=== PATIENT | female | born 1990 | race American Indian/Alaskan Native ===

== ENCOUNTER 2018-01-31 11:01 | Emergency (ER) | payer MEDICAID ==
--- NOTE | 2018-01-31 11:48 | Emergency Department Report ---
Upper Extremity - [facility] Chief Complaint: Extremity Injury, Upper Stated Complaint: LEFT SIDE RIB PAIN Time Seen by Provider: 01/31/18 11:10 ED Review of Systems ROS: Stated complaint: LEFT SIDE RIB PAIN Other details as noted in HPI ED Past Medical Hx - Past Medical History Previous Medical History?: No Hx Hypertension: No Hx CVA: No Hx Heart Attack/AMI: No Hx Congestive Heart Failure: No Hx Diabetes: No Hx Deep Vein Thrombosis: No Hx Pulmonary Embolism: No Hx GERD: No Hx Liver Disease: No Hx Renal Disease: No Hx Sickle Cell Disease: No Hx Arthritis: No Hx Headaches / Migraines: No Hx Seizures: No Hx Kidney Stones: No Hx Psychiatric Treatment: No Hx Asthma: No Hx COPD: No Hx Tuberculosis: No Hx Dementia: No Hx HIV: No - Surgical History Past Surgical History?: No Hx Coronary Stent: No Hx Open Heart Surgery: No Hx Pacemaker: No Hx Internal Defibrillator: No Hx Cholecystectomy: No Hx Appendectomy: No Hx Breast Surgery: No - Social History Smoking Status: Current Every Day Smoker Substance Use Type: None - Medications Home Medications: Home Medications Medication Instructions Recorded Confirmed Last Taken Type Fluconazole [Diflucan] 150 mg PO ONCE #1 tablet 03/22/15 Unknown Rx metroNIDAZOLE [Flagyl] 500 mg PO Q8H #21 tablet 03/22/15 Unknown Rx traMADol [Ultram 50 MG tab] 50 mg PO Q6HR PRN #12 tablet 03/22/15 Unknown Rx Amoxicillin [Trimox CAP] 500 mg PO Q8H #30 capsule 04/13/16 Unknown Rx Vit-Fe Fumar-FA [ 1 tab PO QDAY #90 tablet 04/13/16 Unknown Rx Vitamin] Upper Extremity Exam - Exam General: Vital signs noted. No distress. Alert and acting appropriately. ED Course Vital Signs 01/31/18 11:03 Temperature 98.6 F Pulse Rate 67 Blood Pressure 123/68 O2 Sat by Pulse 100 Oximetry Critical care attestation.: If time is entered above; I have spent that time in minutes in the direct care of this critically ill patient, excluding procedure time. ED Disposition Condition: Stable Referrals: ANGELITO PERDOMO [Other] - 3-5 Days
--- NOTE | 2018-01-31 12:07 | XRay Report ---
LEFT RIBS, 2 VIEWS: History: pain. Subtle deformity of the left posterior ninth rib is suspected. The remaining left ribs are within normal limits. The left lung is well-aerated. IMPRESSION: Probable left posterior ninth rib fracture.
--- NOTE | 2018-01-31 13:05 | Cat Scan Report ---
CT CHEST WITHOUT CONTRAST: HISTORY: chest pain. COMPARISON: none. TECHNIQUE: Helical CT in 1.25mm intervals without IV contrast. Sagittal and coronal reformatted images. FINDINGS: Thyroid gland: Normal. Tracheobronchial tree: Normal. Esophagus: Normal. Heart: Normal. Pericardium: Normal. Mediastinum: Normal. Lung Springer: Normal. Pleural Spaces: Normal. Musculoskeletal: CT confirms a mildly displaced left posterior ninth rib fracture. No additional fractures are appreciated. IMPRESSION: Left posterior ninth rib fracture.
[2018-01-31] MEDS ORDERED: TORADOL IM ONE (14:39)
--- NOTE | 2018-01-31 14:39 | Emergency Department Report ---
HPI - General Chief Complaint: Extremity Injury, Upper Time Seen by Provider: 01/31/18 11:10 - HPI HPI: This is 27-year-old female well-nourished well-developed here complaining and off falling 2 days ago over a curb on sidewalk. She says she fell and now she is having pain to her left flank area pointing to left rib cage. Denies any head injury, headache or neck pain. Denies any loss of consciousness. Her only complaint is pain to left sided rib cage. Pain is 7 out of 10 she reports is achy, worse with inspiration. [id number] pain medication did not help. Denies any medical problems. Denies any bruises or abrasion. Denies coughing up blood. ED Past Medical Hx - Past Medical History Previous Medical History?: No Hx Hypertension: No Hx CVA: No Hx Heart Attack/AMI: No Hx Congestive Heart Failure: No Hx Diabetes: No Hx Deep Vein Thrombosis: No Hx Pulmonary Embolism: No Hx GERD: No Hx Liver Disease: No Hx Renal Disease: No Hx Sickle Cell Disease: No Hx Arthritis: No Hx Headaches / Migraines: No Hx Seizures: No Hx Kidney Stones: No Hx Psychiatric Treatment: No Hx Asthma: No Hx COPD: No Hx Tuberculosis: No Hx Dementia: No Hx HIV: No - Surgical History Past Surgical History?: No Hx Coronary Stent: No Hx Open Heart Surgery: No Hx Pacemaker: No Hx Internal Defibrillator: No Hx Cholecystectomy: No Hx Appendectomy: No Hx Breast Surgery: No - Family History Family history: no significant - Social History Smoking Status: Current Every Day Smoker Substance Use Type: None - Medications Home Medications: Home Medications Medication Instructions Recorded Confirmed Last Taken Type Fluconazole [Diflucan] 150 mg PO ONCE #1 tablet 03/22/15 Unknown Rx metroNIDAZOLE [Flagyl] 500 mg PO Q8H #21 tablet 03/22/15 Unknown Rx traMADol [Ultram 50 MG tab] 50 mg PO Q6HR PRN #12 tablet 03/22/15 Unknown Rx Amoxicillin [Trimox CAP] 500 mg PO Q8H #30 capsule 04/13/16 Unknown Rx Vit-Fe Fumar-FA [ 1 tab PO QDAY #90 tablet 04/13/16 Unknown Rx Vitamin] Acetaminophen/Codeine [Tylenol 1 tab PO Q6H PRN #12 tab 01/31/18 Unknown Rx /Codeine # 3 tab] Ibuprofen [Motrin] 600 mg PO Q8H PRN #12 tablet 01/31/18 Unknown Rx ED Review of Systems ROS: Stated complaint: LEFT SIDE RIB PAIN Other details as noted in HPI Comment: All other systems reviewed and negative Constitutional: no symptoms reported Respiratory: no symptoms reported Cardiovascular: other (left rib cage pain ). denies: chest pain, palpitations, dyspnea on exertion, edema, syncope, paroxysmal nocturnal dyspnea Gastrointestinal: denies: abdominal pain, nausea, vomiting, diarrhea, constipation, hematemesis, melena, hematochezia Genitourinary: denies: dysuria, hematuria Musculoskeletal: arthralgia. denies: back pain, joint swelling Skin: denies: rash Neurological: denies: headache, numbness, paresthesias, abnormal gait, vertigo Physical Exam - Physical Exam Vital Signs: Vital Signs 01/31/18 11:03 Temperature 98.6 F Pulse Rate 67 Blood Pressure 123/68 O2 Sat by Pulse 100 Oximetry General: This is a 27-year-old female well-nourished well-developed in no acute distress and nontoxic in appearance. Physical Exam: Head: Normocephalic, atraumatic, no abrasion, no bruising and no contusion. Eyes: Biateral pupils equal and reactive to light, bilateral EOM intact.. Bilateral conjunctival and sclera without injection, normal accommodation. No nystagmus Mouth: Mucosa moist, no pharyngeal exudate or erythema. No peritonsillar abscesses. Uvula is midline and oral airways patent. Ears: Bilateral TMs pearly gama Bilateral EAC without any redness swelling or drainage. No mastoid bone tenderness Nose: Lateral nasal mucosa normal ,Maxillary and frontal sinuses non-tender to palpate. Neck: Supple, No Cervical adenopathy, full range of motion and no C-spine tenderness. No swelling or tracheal deviation normal reflexes Cardiovascular: S1, S2. Regular rate and rhythm. No murmur. Capillary refill is less then 3 seconds. Lungs: Clear to auscultate bilaterally. No rhonchi, wheezes or rales. Positive chest wall tenderness to left distal, medial and lateral chest wall at lower rib.. No chest contusion. No bruising to chest. No crepitus. No abrasions or laceration to chest. MSK: Strength 5/5 in all extremities. No joint deformity or crepitus. Normal inspection. Full range of motion to all extremities. No laceration, abrasion or ecchymotic area noted. Abdomen: Non-tender to palpate in all quadrants, no guarding or rebound tenderness, positive bowel sounds in all quadrants. No CVA tenderness. No hernia, bruit or mass. No rigidity or distention. Extremities: No clubbing, cyanosis or edema. +2 pulses. No neurovascular compromise Skin: Clean, dry and intact. No rash or lesions. Neurological: GCS at 15, Pt is alert and oriented 3 speech is clear . Bilateral hand data collection specialist strong and equal. Normal gait. Negative Romberg and no pronator drift. Normal Reflexes. No motor or sensory deficit Back: No vertebral tenderness, no paraspinal tenderness. Ambulates without any difficulties. Psych: Normal mood and behavior ED Course Vital Signs 01/31/18 11:03 Temperature 98.6 F Pulse Rate 67 Blood Pressure 123/68 O2 Sat by Pulse 100 Oximetry - Reevaluation(s) Reevaluation #1: 01/31/18 14:40 She given Toradol 60 mg IM in emergency room for Rib pain. ED Medical Decision Making - Radiology Data Radiology results: report reviewed X-ray of left reveals ninth rib fracture but no suggestion of displacement. X- ray films apparent of some displacement therefore CT scan of chest was ordered and shows mildly displaced left posterior ninth rib fracture. No additional fractures seen - Medical Decision Making ED course: Patient status post accidental fall who complains of left rib pain. She has no contusion, abrasion or laceration to the side. She has no other injuries. Patient had x-ray of left rib which shows ninth rib fracture without any suggestion of displacement. She had CT scan which shows mildly displaced ninth posterior rib fracture. Patient was given Toradol 60 mg IM in emergency room for pain and I discussed diagnosis with her. She does have access to primary care but she doesn't have a primary care physician therefore discussed the patient is to follow-up with primary care physician and if she doesn't have one to follow-up at [facility]. to call tomorrow to schedule an appointment for well female visit to include Pap smear and also she will need repeat x-ray in about one week for follow-up rib fracture with mild displacement. Patient voiced understanding of diagnosis and treatment plan and discharged home with prescription for Tylenol 3, Motrin and to follow-up Critical care attestation.: If time is entered above; I have spent that time in minutes in the direct care of this critically ill patient, excluding procedure time. ED Disposition Clinical Impression: Musculoskeletal pain Left rib fracture Qualifiers: Encounter type: initial encounter Rib fracture type: single rib Fracture type: closed Qualified Code(s): S22.32XA - Fracture of one rib, left side, initial encounter for closed fracture Accidental fall Qualifiers: Encounter type: initial encounter Qualified Code(s): W19.XXXA - Unspecified fall, initial encounter Disposition: TO HOME OR SELFCARE Is pt being admited?: No Does the pt Need Aspirin: No Condition: Stable Instructions: Rib Fracture (ED), Musculoskeletal Pain (ED) Additional Instructions: Please the present cough every 3-4 hours to prevent pneumonia and collapsed of lung bases. Please follow-up with primary care physician and if he do not have one follow- up at [facility] for primary care. Call tomorrow to schedule an appointment. You will need repeat x-ray for follow-up rib fracture. take motrin and ttylenol #[address] or operate heavy machinery while taking TYlenol # 3 as it causea drowsiness Prescriptions: Acetaminophen/Codeine [Tylenol /Codeine # 3 tab] 1 tab PO Q6H PRN #12 tab PRN Reason: severe pain Ibuprofen [Motrin] 600 mg PO Q8H PRN #12 tablet PRN Reason: Pain Referrals: ANGELITO PERDOMO [Other] - 2-3 Days [facility] [Outside] - 2-3 Days Forms: Work/School Release Form(ED)
[2018-01-31] MEDS ORDERED: MOTRIN ONE (14:59)
[2018-01-31] MEDS ORDERED: MOTRIN PO ONE (15:02)
[2018-01-31 15:03] VITALS: BP 118/72
== END 2018-01-31 15:07 | disposition home or self-care (01) ==
LOC: ED 11:01
DX: S22.32XA Fracture of one rib, left side, initial encounter for closed fracture (principal); F17.200 Nicotine dependence, unspecified, uncomplicated; W18.39XA Other fall on same level, initial encounter; Y93.89 Activity, other specified; Y99.8 Other external cause status; Y92.89 Other specified places as the place of occurrence of the external cause
CPT/HCPCS: 71250